=== PATIENT | female | born 1960 | race African-American/Black ===

== ENCOUNTER 2016-08-23 11:01 | Inpatient (IN) | payer OTHER ==
[~2016-08-23] VITALS: Ht 152.4 cm; Wt 71.1 kg
--- NOTE | ~2016-08-23 | HC ---
[facility] [place] [address] CONSULTATION Name: GENESIS BAGLEY Room #: 501-A [facility] IN M.R.#: [id number] Admission: 08/23/16 Attend Phys: Facundo Maher MD Discharge: 09/06/16 Date of : 60 Report #: [id number] THIS REPORT FOR: //name// CC: Facundo Maher [facility] unknown DATE OF SERVICE: 08/25/2016 NEUROBEHAVIORAL STATUS EXAM AGE: 56. ATTENDING PHYSICIAN: Facundo Maher M.D. CLOTH PRINTING INSPECTOR: Jamie Mohr, PhD. CLINICAL PRESENTATION: The patient is a 56-year-old female, admitted to the [facility] rehabilitation unit for a comprehensive inpatient rehabilitation program to improve functional mobility and activities of daily living and self-care secondary to deficits from a cerebrovascular accident. She has a history of hypertension, occasional heartburn, CVA on 07/18/2016, partial hysterectomy, bowel obstruction with resection and hernia repair. A complete description of her medical condition and history can be found in her medical record. Neuropsychological consultation was requested to provide assistance in the assessment of cognitive and emotional status and to provide recommendations and services. Prior to this most recent admission, she has been living independently. She has one son with whom she is going home following her hospitalization. She is . She has one brother and one sister. The patient is a high school graduate. 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 TECHNIQUES UTILIZED: Clinical interview, review of medical records, staff consultation and behavioral observation, mini-mental status exam 2 standard version, clock drawing, category fluency assessment and brief abstract reasoning test. EXAMINATION FINDINGS: The patient was alert and cooperative with the assessment. She accurately described events surrounding her hospitalization. There is no evidence of aphasia. Her thoughts are logical and goal oriented. There is no evidence of thought disorder. She does not report auditory or visual hallucinations. Her symptoms include anxiety. She does not report subjective depression or difficulty with cognition. Sleep and appetite are reported as within normal limits. [facility] [address] [place] [address] CONSULTATION Name: GENESIS BAGLEY Room #: 501-A [facility].#: [id number] Admission: 08/23/16 Attend Phys: Facundo Maher MD Discharge: 09/06/16 Date of : 60 Report #: [id number] Her performance on the MMSE-2 brief version is within normal limits with a raw score of 15 of 16 and T-score of 49. Her performance on the MMSE-2 standard version was within normal limits with a raw score 26 and T-score of 43. She was 3/5 for serial 7's. The patient had a left hemiparesis in his left hand, so she was unable to copy a simple geometric design. Performance and category fluency was within normal limits with a T-score of 52. Performance on a brief abstraction test was ithin normal limits with a raw score of 8. 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 Functioning should be monitored in order to provide assistance as needed as well as prior to driving. Thank you very much for allowing me to provide the consultation on this patient. <ELECTRONICALLY SIGNED> By: Jamie Mohr, PhD 09/08/16 [id number] Jamie Mohr, PhD /nt
[2016-08-23] MEDS ORDERED: APAP500 PO (12:48)
[2016-08-23] MEDS ORDERED: LOPRESSOR25 PO (12:49)
[2016-08-23] MEDS ORDERED: ASPIRIN325 PO (12:49)
[2016-08-23] MEDS ORDERED: ZOCOR20 MG PO (12:50)
[2016-08-23] MEDS ORDERED: NICOTINE TRANSD21 M1 (12:50)
[2016-08-23] MEDS ORDERED: NORVASC10 MG PO (12:52)
[2016-08-23] MEDS ORDERED: CHLORDIAZEPOXID25 M1 PO (12:55)
[2016-08-23] MEDS ORDERED: HYDROCHLOROTHIA25 M2 PO (12:56)
[2016-08-23 14:00] VITALS: BP 130/92
[2016-08-23 16:06] LABS: HEMATOCRIT 45.7 % (37.0-47.0); HEMOGLOBIN 15.7 gm/dL (12.0-15.0); MCH 30.5 pg (26.0-34.0); MCHC 34.3 g/dL (28.0-37.0); MCV 88.9 fL (80.0-100.0); RBC 5.14 mil/uL (4.20-5.00); RDW 13.9 % (10.5-14.5); WBC 8.3 thou/uL (4.0-11.0)
[2016-08-23 16:15] LABS: CALCIUM 9.6 mg/dL (8.5-10.1); CREATININE 0.8 mg/dL (0.6-1.0)
[2016-08-23 16:19] LABS: POTASSIUM 2.9 mmol/L (3.5-5.1)
[2016-08-24 04:18] LABS: ALBUMIN 3.6 g/dL (3.4-5.0); CALCIUM 9.4 mg/dL (8.5-10.1); CREATININE 0.7 mg/dL (0.6-1.0); POTASSIUM 3.7 mmol/L (3.5-5.1); TOTAL BILIRUBIN 0.4 mg/dL (<0.1-1.0); TOTAL PROTEIN 7.3 g/dL (6.4-8.2)
[2016-08-24 04:19] VITALS: BP 121/83
[2016-08-24 15:45] VITALS: BP 102/67
[2016-08-24 20:00] VITALS: BP 138/91
[2016-08-25 04:51] VITALS: BP 118/80
[2016-08-25 15:30] VITALS: BP 113/76
[2016-08-25 20:30] VITALS: BP 118/79
[2016-08-26 05:47] VITALS: BP 119/76
[2016-08-26 06:03] LABS: CALCIUM 9.2 mg/dL (8.5-10.1); CREATININE 0.7 mg/dL (0.6-1.0); POTASSIUM 3.7 mmol/L (3.5-5.1)
[2016-08-26 15:30] VITALS: BP 99/67
[2016-08-26 20:00] VITALS: BP 133/96
[2016-08-27 05:37] VITALS: BP 120/74
[2016-08-27 07:39] VITALS: BP 124/86
[2016-08-27 16:00] VITALS: BP 137/85
[2016-08-27 20:15] VITALS: BP 110/86
[2016-08-28 04:00] VITALS: BP 140/95
[2016-08-28 07:49] VITALS: BP 138/89
[2016-08-28 16:00] VITALS: BP 116/77
[2016-08-29 05:17] LABS: ALBUMIN 3.5 g/dL (3.4-5.0); CALCIUM 9.2 mg/dL (8.5-10.1); CREATININE 0.6 mg/dL (0.6-1.0); MAGNESIUM 1.7 mg/dL (1.8-2.4); POTASSIUM 3.9 mmol/L (3.5-5.1); TOTAL BILIRUBIN 0.4 mg/dL (<0.1-1.0); TOTAL PROTEIN 6.5 g/dL (6.4-8.2)
[2016-08-29 05:37] VITALS: BP 125/76
[2016-08-29 09:46] VITALS: BP 144/90
[2016-08-29 15:30] VITALS: BP 126/85
[2016-08-29 20:22] VITALS: BP 133/85
[2016-08-30 05:28] VITALS: BP 118/66
[2016-08-30 15:25] VITALS: BP 118/75
[2016-08-31 04:13] VITALS: BP 136/78
[2016-08-31 14:45] VITALS: BP 114/83
[2016-08-31 20:55] VITALS: BP 144/96
[2016-09-01 06:14] VITALS: BP 142/90
[2016-09-01 16:00] VITALS: BP 92/59
[2016-09-01 21:00] VITALS: BP 125/72
[2016-09-02 04:21] VITALS: BP 131/77
[2016-09-02 07:55] VITALS: BP 129/89
[2016-09-02 16:00] VITALS: BP 126/71
[2016-09-03 05:18] VITALS: BP 122/77
[2016-09-03 07:18] VITALS: BP 136/99
[2016-09-03 16:00] VITALS: BP 132/97
[2016-09-04 05:22] VITALS: BP 143/93
[2016-09-04 15:30] VITALS: BP 114/70
[2016-09-05 05:23] VITALS: BP 129/80
[2016-09-05 06:24] LABS: ABSOLUTE NEUTROPHILS 3.1 thou/uL (1.4-8.2); BASOPHILS 1.2 % (0.0-2.0); EOSINOPHILS 2.5 % (0.0-3.0); HEMATOCRIT 43.6 % (37.0-47.0); HEMOGLOBIN 14.8 gm/dL (12.0-15.0); LYMPHOCYTES 40.4 % (24.0-44.0); MCH 30.3 pg (26.0-34.0); MCV 88.9 fL (80.0-100.0); MONOCYTES 10.8 % (1.0-8.0); PLATELET COUNT 318 thou/uL (150-400); POLYS 45.1 % (36.0-66.0); WBC 6.8 thou/uL (4.0-11.0)
[2016-09-05 06:30] LABS: MANUAL DIFF NO
[2016-09-05 06:38] LABS: CALCIUM 9.3 mg/dL (8.5-10.1); CREATININE 0.7 mg/dL (0.6-1.0); MAGNESIUM 1.9 mg/dL (1.8-2.4); POTASSIUM 3.9 mmol/L (3.5-5.1)
[2016-09-05] MEDS ORDERED: PEPCID20 MG PO (14:47)
[2016-09-05] MEDS ORDERED: TUMS CHEWA500 MG/11 PO (14:47)
[2016-09-05] MEDS ORDERED: ZOCOR20 MG PO (14:47)
[2016-09-05] MEDS ORDERED: CLOTRIMAZOLE-BE15 GM TOP (14:47)
[2016-09-05] MEDS ORDERED: NORVASC10 MG PO (14:47)
[2016-09-05] MEDS ORDERED: LOPRESSOR25 PO (14:47)
[2016-09-05 15:46] VITALS: BP 132/95
[2016-09-05 16:42] VITALS: BP 132/95
[2016-09-05 20:35] VITALS: BP 124/83
[2016-09-06 03:17] VITALS: BP 148/93
[2016-09-06 08:00] VITALS: BP 124/74
== END 2016-09-06 18:30 | disposition home or self-care (01) | DRG 65 ==
PROVIDERS: Internal Medicine Endocrinology, Diabetes & Metabolism; Nurse Practitioner; Physical Medicine & Rehabilitation
DX: I63.9 Cerebral infarction, unspecified (principal); G81.92 Hemiplegia, unspecified affecting left dominant side; E87.6 Hypokalemia; I10 Essential (primary) hypertension; E78.5 Hyperlipidemia, unspecified; F17.210 Nicotine dependence, cigarettes, uncomplicated; K21.9 Gastro-esophageal reflux disease without esophagitis; G31.84 Mild cognitive impairment of uncertain or unknown etiology; Z88.8 Allergy status to other drugs, medicaments and biological substances; Z90.710 Acquired absence of both cervix and uterus
CPT/HCPCS: 10112